=== PATIENT | female | born 1970 | race American Indian/Alaskan Native ===

== ENCOUNTER 2021-08-28 23:10 | Emergency (ER) | payer MEDICARE ==
--- NOTE | 2021-08-29 01:44 | Emergency Department Report ---
ED Psych HPI - General Chief Complaint: Psych Stated Complaint: HEARING VOICES Time Seen by Provider: 08/28/21 23:51 Source: patient Mode of arrival: Ambulatory - History of Present Illness Initial Comments: 51-year-old female with a history of schizophrenia who presents with auditory hallucination that someone murder her daughter who lives in [place]. She says she has not heard from her in one week and worried she could have been murdered. When asked specifically if she heard the news from someone she says know that she is not sure is she is still alive or not. She however denies any homicidal ideation. Pt also mentioned that she has not taken any of her medications because she ran out of them about a month ago. No other modifying or associated factors reported. - Related Data Allergies Allergy/AdvReac Type Severity Reaction Status Date / Time No Known Allergies Allergy Unverified 08/28/21 23:39 ED Review of Systems ROS: Stated complaint: HEARING VOICES Other details as noted in HPI Comment: All other systems reviewed and negative Psychiatric: auditory hallucinations. denies: visual hallucinations, homicidal thoughts, suicidal thoughts ED Past Medical Hx - Past Medical History Hx Psychiatric Treatment: Yes (ran out medications ) ED Physical Exam - General Limitations: No Limitations General appearance: alert, in no apparent distress - Head Head exam: Present: normal inspection - Eye Eye exam: Present: normal appearance Pupils: Present: normal accommodation - ENT ENT exam: Present: normal exam, normal orophraynx, mucous membranes moist - Neck Neck exam: Present: normal inspection, full ROM. Absent: tenderness - Respiratory Respiratory exam: Present: normal lung sounds bilaterally. Absent: respiratory distress, accessory muscle use - Cardiovascular Cardiovascular Exam: Present: regular rate, normal rhythm, normal heart sounds - GI/Abdominal GI/Abdominal exam: Present: soft, normal bowel sounds. Absent: distended, tenderness - Extremities Exam Extremities exam: Present: normal inspection, normal capillary refill - Back Exam Back exam: Absent: tenderness - Neurological Exam Neurological exam: Present: alert, oriented X3 - Psychiatric Psychiatric exam: Present: normal affect, depressed - Skin Skin exam: Present: warm, normal color ED Course Vital Signs 08/28/21 23:37 Temperature 98.7 F Pulse Rate 102 H Respiratory 16 Rate Blood Pressure 179/100 [Right] O2 Sat by Pulse 99 Oximetry - Reevaluation(s) Reevaluation #1: 08/29/21 01:47 here with auditory hallucination -- with history of schizophrenia and not compliant with medication in the last 1 month--this could be the result of noncompliance so we will go ahead and check routine psych work-up to rule out any infectious or electrolyte abnormality or correctable cause--and have patient seen by mental health for further evaluation and disposition-- Critical care attestation.: If time is entered above; I have spent that time in minutes in the direct care of this critically ill patient, excluding procedure time. ED Disposition Clinical Impression: Auditory hallucinations Disposition: 30 STILL A PATIENT Does the pt Need Aspirin: No Condition: Stable Referrals: [facility] [Other] - 3-5 Days
[2021-08-29 02:13] LABS: Basophils % (Auto) 0.9 % (0.0-1.8); Eosinophils % (Auto) 0.6 % (0.0-4.3); Hematocrit 38.1 % (30.3-42.9); Hemoglobin 12.6 gm/dl (10.1-14.3); Lymphocytes # (Auto) 1.9 K/mm3 (1.2-5.4); Lymphocytes % (Auto) 34.7 % (13.4-35.0); Mean Corpuscular HGB Conc 33 % (30-34); Mean Corpuscular Volume 89 fl (79-97); Monocytes # (Auto) 0.3 K/mm3 (0.0-0.8); Monocytes % (Auto) 6.5 % (0.0-7.3); Platelet Count 234 K/mm3 (140-440); Red Blood Count 4.26 M/mm3 (3.65-5.03); Red Cell Distribution Width 14.9 % (13.2-15.2)
[2021-08-29 02:36] LABS: Alanine Aminotransferase 15 units/L (7-56); Albumin 4.9 g/dL (3.9-5); BUN/Creatinine Ratio 10; Blood Urea Nitrogen 9 mg/dL (7-17); Calcium 10.4 mg/dL (8.4-10.2); Hemolysis Index 39
[2021-08-29 04:56] VITALS: BP 158/98
[2021-08-29 13:01] LABS: Bacteria,Urine 2+ /HPF (Negative); Bilirubin,Urine NEG (Negative); Blood,Urine MOD (Negative); Color,Urine Yellow (Yellow); Mucus,Urine 1+ /HPF
[2021-08-29 13:07] LABS: Amphetamine Screen,Urine Negative; Benzodiazepines Screen,Urine Negative; Cannabinoid Screen,Urine Negative; Cocaine Screen,Urine Negative; Methadone Screen,Urine Negative; Opiate Screen,Urine Negative
--- NOTE | 2021-08-29 17:22 | Emergency Department Report ---
Blank Doc - Documentation Documentation: Chart reviewed 51-year-old female currently on 1013 for acute psychosis and paranoia. Awaiting transfer to inpatient psych facility
--- NOTE | 2021-08-29 17:43 | Consultation ---
History of Present Illness - Reason for Consult Consult date: 08/29/21 Reason for consult: psychosis - History of Present Psychiatric Illness HPI: 51-year-old female with a history of schizophrenia who presents with auditory hallucination that someone murder her daughter who lives in [place]. She says she has not heard from her in one week and worried she could have been murdered. When asked specifically if she heard the news from someone she says know that she is not sure is she is still alive or not. She however denies any homicidal ideation. Pt also mentioned that she has not taken any of her medications because she ran out of them about a month ago. No other modifying or associated factors reported. The patient was seen today. She is calm, and cooperative. The patient is still psychotic. She appears paranoid. She says she is hearing voices telling her that her killed her daughter. The patient says "he was talking about us having sex and choking each other and I started having flash backs of my niece who hung herself." The patient says she's been off her meds for 5 days. She denies SI/HI. She states her mind is not right. The patient says "I need help to get my head together. I feel scared." PAST PSYCHIATRIC HISTORY: Diagnoses: PTSD, schizophrenia Suicide attempts or Self-harm behavior: Denies Prior psychiatric hospitalizations: Yes Substance Abuse history: Denies Previous psychiatric medications tried: Abilify, effexor, tamazepam Outpatient treatment: Denies PAST MEDICAL HISTORY: None reported Family Psychiatric History: None reported SOCIAL HISTORY Marital Status: Living Arrangements: spouse Employment Status: disabled Access to guns/weapons: Denies Education: History of Abuse: denies Legal History: denies REVIEW OF SYSTEMS Constitutional: Negative for weight loss ENT: Negative for stridor Respiratory: Negative for cough or hemoptysis All other systems reviewed and are negative MENTAL STATUS EXAMINATION General Appearance: Dressed appropriately Behavior: calm and cooperative Mood: Depressed Affect and affective range: congruent with mood Thought Process: illogical Thought content: reality oriented Speech: Normal tone and pace Suicidal Ideation: Denies Homicidal Ideation: Denies Hallucinations: Auditory Delusions: None elicited Insight and Judgment: Limited insight and judgment Memory: Limited Attention: attentive Orientation: Alert, oriented Assessment 1013 Abilify 10mg po daily Venlafaxine 25mg po daily Remeron 7.5mg po qhs Medical: per primary Disposition: Recommend acute psychiatric inpatient treatment Will follow. Thanks Case staffed with Dr. Glasgow Medications and Allergies Allergies Allergy/AdvReac Type Severity Reaction Status Date / Time No Known Allergies Allergy Unverified 08/28/21 23:39 Mental Status Exam - Vital signs Last Vital Signs Temp 98.8 F 08/29/21 04:51 Pulse 100 H 08/29/21 04:51 Resp 18 08/29/21 04:51 BP 158/98 08/29/21 04:51 Pulse Ox 95 08/29/21 04:51 Results Result Diagrams: 08/29/21 02:00 08/29/21 02:00 Abnormal lab results 08/29/21 08/29/21 08/29/21 Range/Units 02:00 02:00 02:00 Calcium 10.4 H (8.4-10.2) mg/dL Total Protein 8.4 H (6.3-8.2) g/dL Urine WBC (Auto) (0.0-6.0) /HPF U Epithel Cells (Auto) (0-13.0) /HPF Salicylates < 0.3 L (2.8-20.0) mg/dL Acetaminophen 5.0 L (10.0-30.0) ug/mL 08/29/21 Range/Units Unknown Calcium (8.4-10.2) mg/dL Total Protein (6.3-8.2) g/dL Urine WBC (Auto) 38.0 H (0.0-6.0) /HPF U Epithel Cells (Auto) 21.0 H (0-13.0) /HPF Salicylates (2.8-20.0) mg/dL Acetaminophen (10.0-30.0) ug/mL All other labs normal.
[2021-08-29] MEDS ORDERED: VENLAFAXINE 25 MG TAB PO SCH (18:00)
[2021-08-29] MEDS ORDERED: ARIPiprazole 10 MG TAB PO SCH (18:00)
[2021-08-29] MEDS ORDERED: MIRTAZAPINE 15 MG TAB PO SCH (22:00)
== END 2021-08-29 19:50 | disposition still patient (30) ==
LOC: ED 23:10 → EEVIPCON 23:10 → ED 08-29 19:50
DX: R44.0 Auditory hallucinations (principal); Z13.30 Encounter for screening examination for mental health and behavioral disorders, unspecified; Z20.822 Contact with and (suspected) exposure to COVID-19
CPT/HCPCS: 36415; 80053; 80307; 81001; 85025; 87086; 99285; U0003; 80320; G0480